=== PATIENT | male | born 1995 | race Hispanic/Latino ===

== ENCOUNTER 2018-04-08 06:08 | Day surgery (SDC) | payer OTHER ==
--- NOTE | 2018-04-07 09:56 | HP ---
HISTORY OF PRESENT ILLNESS: The patient is a 22-year-old male who injured his left knee playing [employer] approximately 3 years ago. He did not seek immediate medical attention and was treated conservati vely. Since that time, he has had persistent problems with pain and instability which has become wor se recently. He describes catching and giving way. PAST MEDICAL HISTORY: The patient lives and works in [place], but his family lives here. He was ev aluated there and found to have anterior cruciate ligament tear and medial meniscal tear of his left knee. He decided to come to this area where his family is so he could recover with his family and is admitted at this time for definitive treatment of his knee injury. PAST HISTORY: As noted as above. The patient is otherwise in good health, has no major medical prob lems. CURRENT MEDICATIONS: He takes clindamycin for acne. ALLERGIES: He has no known allergies. FAMILY HISTORY/SOCIAL HISTORY/REVIEW OF SYSTEMS: Otherwise unremarkable. The patient is normally quite active and does [employer] weightlifting and occasional running. His cur rent knee problems are interfering with his activities. PHYSICAL EXAMINATION: GENERAL: Reveals a healthy male. HEENT: Unremarkable. NECK: Supple. CHEST: Clear. HEART: Regular rate and rhythm. ABDOMEN: Soft, nontender. RECTAL/GENITAL: Deferred. EXTREMITIES: Pertinent findings of the left knee. There is no effusion. There is normal alignment. There is tenderness over the medial joint line. There is full range of motion. There is a positiv e Hossein, positive pivot shift test, positive anterior drawer. There is crepitus with Suzanne's ma neuver. There is approximately 2-3 degrees of hyperextension of both knees. Negative posterior draw er. Neurovascular exam is intact with palpable distal pulses. LABORATORY AND X-RAY FINDINGS: X-rays of the left knee are normal. MRI scan of the left knee reveal s a complex tear of the medial meniscus and complete rupture of the ACL. IMPRESSION: Internal derangement left knee with tear of anterior cruciate ligament and medial menisc us. PLAN: Arthroscopic assisted ACL reconstruction of the left knee with partial medial meniscectomy and /or debridement and shaving. The nature of the surgery, length of recovery, and potential complicati ons such as infection, loss of motion, incomplete relief, thromboembolic phenomena, neurovascular inj ury, post-traumatic arthritis, recurrent tear, fracture of the patella, and need for additional treat ment or repeat surgery have been discussed in detail.
[2018-04-07 15:09] VITALS: BMI 23.9
[2018-04-08] MEDS ORDERED: Midazolam HCl 2 mg/2 ml Vial ONE (06:29)
[2018-04-08] MEDS ORDERED: Dexamethasone 4 mg/ml Vial ONE (06:30)
[2018-04-08] MEDS ORDERED: Fentanyl 100 MCG/2 ML VIAL ONE ×3 (06:30→10:16)
[2018-04-08] MEDS ORDERED: Bupivacaine PF 0.5% 30 ML VIAL ONE (06:31)
[2018-04-08] MEDS ORDERED: Lidocaine 1% (PF) 30 ML VIAL ONE (06:32)
[2018-04-08] MEDS ORDERED: EPINEPHrine 1 MG/10 ML Abboject SYRINGE ONE (06:32)
[2018-04-08] MEDS ORDERED: CEFAZOLIN 2 GM/50 ML BAG ONE (06:40)
[2018-04-08] MEDS ORDERED: Meperidine HCl/PF 25 MG/ML VIAL ONE (09:17)
[2018-04-08] MEDS ORDERED: PROPOFOL 200 MG/20 ML VIAL ONE (10:18)
[2018-04-08] MEDS ORDERED: Ondansetron PF 4 MG/2 ML Vial ONE (10:18)
[2018-04-08] MEDS ORDERED: Ketorolac Tromethamine 30 MG/ML VIAL ONE (10:18)
--- NOTE | 2018-04-08 10:37 | OP ---
DATE OF PROCEDURE: 04/08/2018 SURGEON: Roldan Baltazar M.D. AUTOMOTIVE MANAGER: Digna Hernández PA-C. ANESTHESIA: General plus single-shot femoral nerve block. PREOPERATIVE DIAGNOSES: 1. Chronic anterior cruciate ligament tear, left knee. 2. Medial meniscal tear, left knee. POSTOPERATIVE DIAGNOSES: 1. Chronic anterior cruciate ligament tear, left knee. 2. Medial meniscal tear, left knee. PROCEDURES: 1. Arthroscopic-assisted ACL reconstruction, left knee, with patellar tendon graft. 2. Partial medial meniscectomy. OPERATIVE FINDINGS: Examination under anesthesia revealed a gross positive Hossein's and positive pi vot shift. No medial or lateral instability. Arthroscopy of patellofemoral joint was normal. There was a complex tear of the posterior horn of the medial meniscus with a large flap component. There were grade 2 changes of the weightbearing surface of the medial femoral condyle, but no areas of expo sed bone. The ACL was essentially absent. There may have been a few fronds of tibial stump left, bu t the base of the ligament was gone. There was some slight fraying of the free margin of the lateral meniscus, but it was intact. Lateral compartment appeared to be normal. NARRATIVE REPORT: After satisfactory anesthesia was induced in supine position, the patient was plac ed in a leg martinez and prepped and draped in a routine sterile fashion. Left leg was elevated, exsan guinated with an Esmarch bandage, and the tourniquet inflated to 250 mmHg. A longitudinal incision w as made from the inferior pole of patella to the tibial tubercle, carried down to subcutaneous tissue s. Bleeding points controlled with Bovie cautery. Using sharp and blunt dissection, the patellar te ndon was identified, and then a central one-third bone, patellar tendon bone graft was obtained with an oscillating saw and sharp dissection. Bone plugs on each end of approximately 10 x 25 mm were obt ained. Each bone plug was tagged with heavy Ethibond sutures. After harvesting the graft, it was pr epared and sized on the back table while I arthroscoped the knee. The knee was scoped through the sa me incision used to obtain the patellar tendon graft. The BeMo arthroscope was introduced into th e anterolateral portal, probe through an anteromedial portal, and inflow and outflow accomplished thr ough the scope using the BeMo arthroscopy pump. All findings were documented with the video print er and hard copies were made. Posterior horn of the medial meniscus was debrided with use of motoriz ed shaver and remaining rim balanced and probed and found to be stable. Essentially, the entire post erior horn was removed with the mid and anterior horn were intact. ACL was essentially absent. A sm all amount of the ligament was debrided with a motorized shaver. Notchplasty was obtained with a mot orized jennifer to the [id number] position on the lateral femoral condyle. A guidepin for the tibial t unnel was drilled using the [id number] guide introduced through the anteromedial portal and drillin g the guide pin out the anterolateral aspect of the thigh. A 10 mm cannulated reamer was then used t o drill the femoral tunnel. There appeared to be good placement of the tunnel. A passing suture was placed in the proximal portion of the guidepin and the guidepin pulled out through the knee joint, l eaving the suture within that femoral tunnel for later passage. Using the appropriate guide, the barb depin for the tibial tunnel was placed and then similarly overdrilled with a 10 mm cannulated reamer. There appeared to be good placement of both tunnels. The graft was then passed into the knee by gr asping the passing suture inside the femoral tunnel and pulling this into the knee joint and out thro ugh the tibial tunnel, and using this as a passing suture to pass the graft, which was then passed th rough the knee joint, engaging both bone plug in each tunnel. There appeared to be a good fit and st ability of the graft. Holding the graft taut, the femoral bone plug was fixed with an interference s crew placed over a guidepin. The knee was then brought into full extension and the tibial bone plug fixed with an interference screw placed over a guidepin. Following this, there was full range of mot ion of the knee and elimination of the Hossein's and pivot shift. The knee was rescoped and there wa s good placement of the graft without impingement and elimination of anterior drawer and the graft wa s taut to probing. The knee was copiously irrigated through the scope and all instruments withdrawn. A small piece of Gelfoam was placed in the tibial harvest site and the patellar harvest site was fi lled with bone grafts used from sizing of the grafts and from the reamings of the tunnels. The winter lar tendon defect was closed with interrupted #1 Vicryl, subcutaneous tissue closed with interrupted 2-0 Vicryl. The skin closed with a staple gun. Sterile bulky compressive dressing was applied and t he tourniquet deflated after 75 minutes. The foot promptly pinked up. The patient was placed into a Breg postoperative hinged knee brace. He was awakened and taken to recovery room in stable conditio n. There were no apparent intraoperative complications. The estimated blood loss was negligible. The patient will be discharged home in satisfactory condition. He was instructed on ice, elevation, and given written wound care instructions and home exercise program by the Physical Therapy Departmen luke. He is given a prescription for [place] 10 for pain, 90 tablets. He will be rechecked in my office in 10-14 days or sooner if there are any problems prior to that time.
--- NOTE | 2018-04-08 10:40 | RAD ---
LEFT KNEE TWO VIEWS: HISTORY: Status post surgery. COMPARISON: None. FINDINGS: There are expected postoperative changes, compatible with a left ACL reconstruction. Alignment is ne ar anatomic. IMPRESSION: Findings compatible with a recent left anterior cruciate ligament reconstruction. POS: NANO
[2018-04-08] MEDS ORDERED: Bupivacaine HCl 0.5%/Epinephrine 1:200,000/PF 30 ml Vial ONE (13:23)
== END 2018-04-08 13:00 | disposition home or self-care (01) ==
LOC: SDC 06:08
PROVIDERS: ATTEND Orthopaedic Surgery
PROC: 0MRP47Z Replacement of Left Knee Bursa and Ligament with Autologous Tissue Substitute, Percutaneous Endoscopic Approach (ICD-10-PCS; principal; 2018-04-08)
PROC: 0SBD4ZZ Excision of Left Knee Joint, Percutaneous Endoscopic Approach (ICD-10-PCS; principal; 2018-04-08)
DX: S83.512A Sprain of anterior cruciate ligament of left knee, initial encounter (principal); S83.232A Complex tear of medial meniscus, current injury, left knee, initial encounter; L70.9 Acne, unspecified; Y93.66 Activity, soccer
CPT/HCPCS: 96374; 96376; C1713; G8978-GP-CJ; G8979-GP-CJ; G8980-GP-CJ; J0171; J0670; J1100; J1885; J2001; J2175; J2250; J2405; J2704; J3010; S0020